=== PATIENT | female | born 2000 | race Caucasian/White ===

== ENCOUNTER 2022-04-18 08:58 | Inpatient (IN) ==
[2022-04-18] MEDS ORDERED: METHYLERGONOVINE 0.2 MG/1 ML AMP IM PRN (09:14)
[2022-04-18] MEDS ORDERED: BUTORPHANOL 2 MG/ML VIAL IV PRN (09:14)
[2022-04-18] MEDS ORDERED: OXYTOCIN/LR 20 UNIT/1,000 ML BAG IV ONE (09:14)
[2022-04-18] MEDS ORDERED: CARBOPROST TROMETHAMINE 250 MCG/ML AMP IM PRN (09:14)
[2022-04-18] MEDS ORDERED: BUTORPHANOL 1 MG/ML VIAL IV PRN (09:14)
[2022-04-18] MEDS ORDERED: miSOPROStoL 200 MCG TABLET RECTAL PRN (09:14)
[2022-04-18] MEDS ORDERED: TRANEXAMIC ACID 1,000 MG in SODIUM CHLORIDE 0.9% 100 ML IV PRN (09:14)
[2022-04-18] MEDS ORDERED: LIDOCAINE 1% 50 ML VIAL MISC INJ ONE (09:14)
[2022-04-18 09:32] LABS: Basophils % 0.1 % (0.0-0.8); Eosinophils # 0.1 10*3/uL (0.0-0.87); Eosinophils % 1.1 % (0.00-10.9); Hematocrit 41.3 VOL% (35.7-47.0); Hemoglobin 13.5 GM/DL (12.0-16.0); Immature Granulocytes % 0.6 %; Immature Granulocytes Absolute 0.07 #; Lymphocytes # 1.5 10*3/uL (1.4-4.0); Lymphocytes % 14.3 % (21.3-54.2); Mean Corpuscular HGB Conc 32.7 GM/DL (32-36); Mean Platelet Volume 9.4 FL (9.6-12.0); Monocytes # 0.6 10*3/uL (0.11-0.8); Monocytes % 5.7 % (1.7-12.7); Neutrophils % 78.2 % (38.7-73.9); Platelet Count 287 T/CUMM (130-400); Red Blood Count 4.86 MC/CUMM (3.8-5.5); Red Cell Distribution Width 15.2 % (9.3-17.3); White Blood Count 10.8 T/CUMM (4-12)
[2022-04-18 09:52] LABS: Alanine Aminotransferase 21 U/L (13-56); Albumin 2.8 G/DL (3.4-5.0); Alkaline Phosphatase 225 U/L (45-117); Aspartate Amino Transferase 19 U/L (0-37); Bilirubin,Total < 0.39 MG/DL (0.20-1.00); Blood Urea Nitrogen 4 MG/DL (7-18); Calcium 9.5 MG/DL (8.5-10.1); Carbon Dioxide 22 MMOL/L (21-32); Chloride 108 MMOL/L (98-107); Glucose 86 MG/DL (74-106); Sodium 136 MMOL/L (136-145); Total Protein 7.2 G/DL (6.4-8.2)
[2022-04-18] MEDS ORDERED: miSOPROStoL 200 MCG TABLET PO SCH (10:00)
[2022-04-18] MEDS: LACTATED RINGERS 1,000 ML IV SCH ×2 (18:04→21:54)
[2022-04-18] MEDS: ONDANSETRON 4 MG/2 ML VIAL IV PRN (19:19)
[2022-04-18] MEDS ORDERED: ONDANSETRON 4 MG/2 ML VIAL IV ONE (20:55)
[2022-04-18] MEDS ORDERED: hydrOXYzine HCL 25 MG/1 ML VIAL IM PRN (20:55)
[2022-04-18] MEDS ORDERED: PROMETHAZINE 25 MG/1 ML VIAL IM ONE (20:55)
[2022-04-18] MEDS ORDERED: ePHEDrine 50 MG/ML VIAL IV PRN (20:55)
[2022-04-18] MEDS ORDERED: diphenhydrAMINE 50 MG/1 ML VIAL IV PRN ×2 (20:55)
[2022-04-18] MEDS ORDERED: NALOXONE 0.4 MG/ML VIAL IV PRN (20:55)
[2022-04-18] MEDS ORDERED: LACTATED RINGERS 500 ML IV ONE (20:59)
[2022-04-18] MEDS ORDERED: FAMOTIDINE 20 MG/2 ML VIAL IV ONE (20:59)
[2022-04-18] MEDS ORDERED: CITRIC ACID/SODIUM CITRATE 30 ML UDCUP PO ONE (20:59)
[2022-04-18] MEDS: fentaNYL 2 MCG/ROPIV 0.2% EPID 100 ML EPIDURAL SCH (21:55)
[2022-04-18] MEDS: OXYTOCIN/LR 20 UNIT/1,000 ML BAG IV SCH (22:39)
[2022-04-18 23:00] LABS: Bilirubin,Urine Negative (Negative); Blood, Urine Negative (Negative); Glucose,Urine (UA) Negative (Negative); Ketones,Urine 20 mg/dL (Negative); Mucus,Urine Occasional /LPF (Occasional); Nitrite,Urine Negative (Negative); Protein,Urine Negative (Negative); Urine Appearance CLEAR (Clear); Urine Color Yellow (Yellow); Urine Specific Gravity 1.008 (1.001-1.035); Urine Urobilinogen < 2.0 eU/dL (<2.0)
[2022-04-19] MEDS: fentaNYL 2 MCG/ROPIV 0.2% EPID 100 ML EPIDURAL SCH ×2 (04:14→09:55)
[2022-04-19] MEDS ORDERED: AMPICILLIN INJ 2,000 MG in SODIUM CHLORIDE 0.9% 100 ML IV SCH (05:30)
[2022-04-19] MEDS ORDERED: GENTAMICIN INJ 360 MG in SODIUM CHLORIDE 0.9% 100 ML IV SCH (06:30)
[2022-04-19] MEDS: LACTATED RINGERS 1,000 ML IV SCH (06:31)
[2022-04-19 11:13] LABS: Cord Arterial Blood HCO3 19.6 MMOL/L
[2022-04-19 11:17] LABS: Cord Venous Blood HCO3 21.2 MMOL/L; Cord Venous Blood PCO2 47.9 MMHG; Cord Venous Blood PO2 26.5
[2022-04-19] MEDS: OXYTOCIN/LR 20 UNIT/1,000 ML BAG IV SCH (13:22)
[2022-04-19] MEDS: ONDANSETRON 4 MG/2 ML VIAL IV PRN (13:51)
[2022-04-19] MEDS ORDERED: IBUPROFEN 800 MG TABLET PO PRN (13:52)
[2022-04-19] MEDS ORDERED: oxyCODONE/ACETAMINOPHEN 5-325 MG TABLET PO PRN ×2 (13:52→15:38)
[2022-04-19] MEDS ORDERED: RHO(D) IMMUNE GLOBULIN 300 MCG SYRINGE IM ONE (15:38)
[2022-04-19] MEDS ORDERED: DIPH/TET/ACEL PERT BOOSTER VACCINE 0.5 ML VIAL IM ONE (15:38)
[2022-04-19] MEDS ORDERED: HYDROCORTISONE 2.5% RECTAL CREAM 30 GM TUBE TOP PRN (15:38)
[2022-04-19] MEDS ORDERED: LANOLIN 50% CREAM 0.3 OZ TUBE TOP PRN (15:38)
[2022-04-19] MEDS ORDERED: BISACODYL 10 MG SUPP RECTAL PRN (15:38)
[2022-04-19] MEDS ORDERED: WITCH HAZEL PADS 100/JAR TOP PRN (15:38)
[2022-04-19] MEDS ORDERED: OXYTOCIN/LR 20 UNIT/1,000 ML BAG IV ONE (15:38)
[2022-04-19] MEDS ORDERED: ACETAMINOPHEN 325 MG TABLET PO PRN (15:38)
[2022-04-19] MEDS ORDERED: MEASLES/MUMPS/RUBELLA VACCINE 0.5 ML VIAL SUBCUT ONE (15:38)
[2022-04-19] MEDS ORDERED: BENZOCAINE 20%/MENTHOL 0.5% SPRAY 56 GM CAN TOP PRN (15:38)
[2022-04-19] MEDS: DOCUSATE SODIUM 100 MG CAPSULE PO SCH (21:19)
[2022-04-20 06:29] LABS: Basophils % 0.2 % (0.0-0.8); Eosinophils # 0.2 10*3/uL (0.0-0.87); Eosinophils % 1.3 % (0.00-10.9); Hematocrit 34.8 VOL% (35.7-47.0); Hemoglobin 11.1 GM/DL (12.0-16.0); Immature Granulocytes % 0.7 %; Immature Granulocytes Absolute 0.09 #; Lymphocytes # 1.7 10*3/uL (1.4-4.0); Lymphocytes % 12.5 % (21.3-54.2); Mean Corpuscular HGB Conc 31.9 GM/DL (32-36); Mean Corpuscular Volume 85.9 FL (87-102); Mean Platelet Volume 9.4 FL (9.6-12.0); Monocytes # 0.9 10*3/uL (0.11-0.8); Monocytes % 6.6 % (1.7-12.7); Neutrophils % 78.7 % (38.7-73.9); Platelet Count 246 T/CUMM (130-400); Red Blood Count 4.05 MC/CUMM (3.8-5.5); Red Cell Distribution Width 15.5 % (9.3-17.3); White Blood Count 13.5 T/CUMM (4-12)
[2022-04-20] MEDS: DOCUSATE SODIUM 100 MG CAPSULE PO SCH ×2 (08:46→21:35)
[2022-04-20] MEDS: MULTIVITAMIN (PRENATAL) TABLET PO SCH (08:46)
[2022-04-21 08:32] VITALS: BP 138/88
[2022-04-21] MEDS: MULTIVITAMIN (PRENATAL) TABLET PO SCH (08:45)
[2022-04-21] MEDS: DOCUSATE SODIUM 100 MG CAPSULE PO SCH (08:45)
== END 2022-04-21 11:35 | disposition home or self-care (01) | DRG 807 ==
LOC: N.LDOUT 08:58 → N.LD 09:01 → N.OB 04-19 13:37
PROVIDERS: ADMIT Specialist; ATTEND Specialist